=== PATIENT | female | born 1970 | race Caucasian/White ===

== ENCOUNTER 2017-09-09 08:15 | Day surgery (SDC) | payer BC ==
[~2017-09-09 08:15] MED LIST: Lidocaine 1%/Sod Bicarbonate in NS 8.4% 1 ML Syringe IV PRN; Sodium Chloride 0.9% 10 ML Syringe FLUSH PRN
[2017-09-09] MEDS: Lactated Ringers 1,000 ML IV SCH ×2 (08:40→12:39)
[2017-09-09] MEDS ORDERED: Ondansetron 4 MG/2 ML SDV ONE (08:53)
[2017-09-09] MEDS ORDERED: Propofol 200 MG/20 ML SDV ONE (08:53)
[2017-09-09] MEDS ORDERED: Midazolam 1 MG/ML 2 ML SDV ONE (08:53)
[2017-09-09] MEDS ORDERED: Lidocaine 1% 4 ML ONE (08:54)
[2017-09-09] MEDS ORDERED: fentaNYL 250 MCG/5 ML SDV ONE (08:54)
[2017-09-09] MEDS ORDERED: ceFAZolin 1 GM Vial ONE (08:54)
[2017-09-09] MEDS ORDERED: Lidocaine 1% with EPINEPHrine 1:100,000 20 ML MDV ONE (08:57)
[2017-09-09] MEDS ORDERED: Sodium Chloride 0.9% 50 ML SDV ONE (08:57)
--- NOTE | 2017-09-09 09:07 | PCM.PREANE ---
Preanesthetic Assessment - Anesthesia/Transfusion/Family Hx Anesthesia History: Prior Anesthesia Reaction (nausea) Family History of Anesthesia Reaction: No Transfusion History: No Prior Transfusion(s) - Review of Systems General: No Symptoms Pulmonary: No Symptoms Cardiovascular: No Symptoms Gastrointestinal: No Symptoms Neurological: No Symptoms Other: Reports: None - Physical Assessment NPO Status Date: 09/08/17 NPO Status Time: 00:00 Pulse: 68 O2 Sat by Pulse Oximetry: 97 Respiratory Rate: 16 Blood Pressure: 146/67 Temperature: 36.9 C Height: 1.8 m Weight: 123.377 kg ASA Class: 2 Mental Status: Alert & Oriented x3 Airway Class: Mallampati = 1 Dentition: Reports: Normal Dentition Thyro-Mental Finger Breadths: 3 Mouth Opening Finger Breadths: 3 ROM/Head Extension: Full Lungs: Clear to Auscultation, Normal Respiratory Effort Cardiovascular: Regular Rate, Regular Rhythm, No Murmurs - Lab Values: Laboratory Last Values WBC 12.77 K/mm3 (3.98-10.04) H 09/09/17 08:40 RBC 5.36 M/mm3 (3.98-5.22) H 09/09/17 08:40 Hgb 14.0 gm/L (11.2-15.7) 09/09/17 08:40 Hct 43.0 % (34.1-44.9) 09/09/17 08:40 MCV 80.2 fl (79.4-94.8) 09/09/17 08:40 MCH 26.1 pg (25.6-32.2) 09/09/17 08:40 MCHC 32.6 g/dl (32.2-35.5) 09/09/17 08:40 RDW Std Deviation 41.3 fL (36.4-46.3) 09/09/17 08:40 Plt Count 314 K/mm3 (182-369) 09/09/17 08:40 MPV 10.3 fl (9.4-12.3) 09/09/17 08:40 Neut % (Auto) 62.2 % (34.0-71.1) 09/09/17 08:40 Lymph % (Auto) 29.6 % (19.3-51.7) 09/09/17 08:40 Mcculloch % (Auto) 6.7 % (4.7-12.5) 09/09/17 08:40 Eos % (Auto) 1.0 (0.7-5.8) 09/09/17 08:40 Baso % (Auto) 0.3 % (0.1-1.2) 09/09/17 08:40 Neut # (Auto) 7.94 K/mm3 (1.56-6.13) H 09/09/17 08:40 Lymph # (Auto) 3.78 K/mm3 (1.18-3.74) H 09/09/17 08:40 Mcculloch # (Auto) 0.85 K/mm3 (0.24-0.36) H 09/09/17 08:40 Eos # (Auto) 0.13 K/mm3 (0.04-0.36) 09/09/17 08:40 Baso # (Auto) 0.04 K/mm3 (0.01-0.08) 09/09/17 08:40 Urine HCG, Qual Negative (NEGATIVE) 09/09/17 08:23 - Allergies Allergies/Adverse Reactions: Allergies Allergy/AdvReac Type Severity Reaction Status Date / Time grass pollen Allergy Cannot Verified 09/08/17 10:20 Remember mold Allergy Cannot Verified 09/08/17 10:20 Remember dust Allergy Cannot Uncoded 09/08/17 10:20 Remember trees Allergy Cannot Uncoded 09/08/17 10:20 Remember - Anesthesia Plan Pre-Op Medication Ordered: None - Acknowledgements Anesthesia Type Planned: General Anesthesia Pt an Appropriate Candidate for the Planned Anesthesia: Yes Alternatives and Risks of Anesthesia Discussed w Pt/Guardian: Yes Pt/Guardian Understands and Agrees with Anesthesia Plan: Yes PreAnesthesia Questionnaire HEENT History: Reports: Allergic Rhinitis, Impaired Vision, Otitis Media, Sinusitis, Other (See Below) Other HEENT History: wears glasses Cardiovascular History: Reports: None Respiratory History: Reports: Asthma, Other (See Below) Other Respiratory History: upper respiratory infection, cough Gastrointestinal History: Reports: Irritable Bowel Syndrome Genitourinary History: Reports: None 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: Reports: , Other (See Below) Other OB/BYN History: menorrhagia, irregular menses, dysmenorrhea, endometrial polyp Musculoskeletal History: Reports: Other (See Below) Other Musculoskeletal History: body aches Neurological History: Reports: Seizure, Other (See Below) Other Neuro History: head injury Psychiatric History: Reports: Anxiety, Depression, Other (See Below) Other Psychiatric History: fatigue, mood swings Endocrine/Metabolic History: Reports: Obesity/BMI 30+ Hematologic History: Reports: Other (See Below) Other Hematologic History: elevated WBC Immunologic History: Reports: None Oncologic (Cancer) History: Reports: None Dermatologic History: Reports: Other (See Below) Other Dermatologic History: soft tissue mass - Past Surgical History Head Surgeries/Procedures: Reports: Other (See Below) HEENT Surgical History: Reports: Naso-Sinus Surgery Cardiovascular Surgical History: Reports: None Respiratory Surgical History: Reports: None GI Surgical History: Reports: Cholecystectomy Female Surgical History: Reports: None Male Surgical History: Reports: None Endocrine Surgical History: Reports: None Neurological Surgical History: Reports: Other (See Below) Other Neurological Surgeries/Procedures: brain surgery Musculoskeletal Surgical History: Reports: Other (See Below) Other Musculoskeletal Surgeries/Procedures:: ORIF of tibial plateau with hardware removal Oncologic Surgical History: Reports: None - SUBSTANCE USE Smoking Status *Q: Never Smoker Tobacco Use Within Last Twelve Months: No Second Hand Smoke Exposure: No Days Per Week of Alcohol Use: 0 Number of Drinks Per Day: 0 Total Drinks Per Week: 0 Recreational Drug Use History: No - HOME MEDS Home Medications: Home Meds Cetirizine [ZyrTEC] 10 mg PO DAILY PRN 09/08/17 [History] FLUoxetine [PROzac] 20 mg PO DAILY 09/08/17 [History] Fluticasone Propionate [Flonase] 1 spray NASBOTH DAILY PRN 09/08/17 [History] Guaifenesin/Pseudoephedrne HCl [Mucinex D ER 1,200-120 mg Tab] 1 tab PO BID PRN 09/08/17 [History] diphenhydrAMINE HCl [Allergy Medicine] 1 tab PO DAILY 09/08/17 [History] - CURRENT (IN HOUSE) MEDS Current Meds: Current Medications Lactated Ringer's (Ringers, Lactated) 1,000 mls @ 125 mls/hr IV ASDIRECTED JUDY Stop: 09/09/17 18:00 Last Admin: 09/09/17 08:40 Dose: 125 mls/hr Lidocaine/Sodium Bicarbonate (Buffered Lidocaine 1% In Ns 8.4%) 0.25 ml IV ONETIME PRN PRN Reason: Prior to IV Start Stop: 09/09/17 18:00 Last Admin: 09/09/17 08:39 Dose: 0.25 ml Sodium Chloride (Saline Flush) 10 ml FLUSH ASDIRECTED PRN PRN Reason: Keep Vein Open Stop: 09/09/17 18:00 Discontinued Medications Cefazolin Sodium (Ancef) Confirm Administered Dose 2 gm .ROUTE .STK-MED ONE Stop: 09/09/17 08:55 Fentanyl (Sublimaze) Confirm Administered Dose 250 mcg .ROUTE .STK-MED ONE Stop: 09/09/17 08:55 Lidocaine HCl (Xylocaine-Mpf 1%) Confirm Administered Dose 4 mls @ as directed .ROUTE .STK-MED ONE Stop: 09/09/17 08:55 Midazolam HCl (Versed 1 Mg/Ml) Confirm Administered Dose 2 mg .ROUTE .STK-MED ONE Stop: 09/09/17 08:54 Ondansetron HCl (Zofran) Confirm Administered Dose 4 mg .ROUTE .STK-MED ONE Stop: 09/09/17 08:54 Propofol (Diprivan 20 Ml) Confirm Administered Dose 200 mg .ROUTE .STK-MED ONE Stop: 09/09/17 08:54
[2017-09-09] MEDS ORDERED: Rocuronium 50 MG/5 ML Vial ONE (09:47)
[2017-09-09] MEDS ORDERED: Dexamethasone 4 MG/ML SDV ONE (10:00)
[2017-09-09] MEDS ORDERED: diphenhydrAMINE 50 MG/ML SDV ONE (10:00)
[2017-09-09] MEDS ORDERED: Lactated Ringers 1,000 ML ONE (10:12)
[2017-09-09] MEDS ORDERED: Ketorolac 30 MG/ML SDV ONE (10:20)
[2017-09-09] MEDS ORDERED: fentaNYL 100 MCG/2 ML SDV IVPUSH PRN (11:06)
[2017-09-09] MEDS ORDERED: HYDROmorphone 0.5 MG/0.5 ML Syringe IVPUSH PRN (11:06)
--- NOTE | 2017-09-09 11:08 | PCM.POSTAN ---
POST ANESTHESIA ASSESSMENT - MENTAL STATUS Mental Status: Alert, Oriented - VITAL SIGNS Pulse Rate: 114 SaO2: 96 Resp Rate: 16 Blood Pressure: 161/72 Temperature: 36.6 C - RESPIRATORY Respiratory Status: Respiratory Rate WNL, Airway Patent, O2 Saturation Stable, Supplemental Oxygen - CARDIOVASCULAR CV Status: Pulse Rate WNL, Blood Pressure Stable, Elevated Pulse Rate - GASTROINTESTINAL GI Status: No Symptoms - PAIN Pain Score: 0 - POST OP HYDRATION Hydration Status: Adequate & Stable - OBSERVATIONS Free Text/Narrative:: no anesthesia complications noted
--- NOTE | 2017-09-09 11:19 | PCM.OPNOTE ---
- General Post-Op/Procedure Note Date of Surgery/Procedure: 09/09/17 Operative Procedure(s): Hysteroscopy, dilatation and curettage, polypectomy, endometrial ablation with Novasure Findings: Normal appearing endometrium except for anterior endometrial polyp versus fibroid, normal appearing cervix Pre Op Diagnosis: abnormal uterine bleeding, menorrhagia, endometrial polyp Post-Op Diagnosis: Same Anesthesia Technique: General ET Tube Primary Surgeon: Robbin Magaña Secondary Surgeon: Fidel Houser Anesthesia Provider: Mando Clay Reason Tow Operator Was Necessary: patient safety with obese patient Role of Tow Operator: Assist with retraction of redundant tissue durine D&C and endometrial ablation Pathology: Endometrial curettings, anterior endometrial polyp Fluid Replacement, Intraop: 1,500 Output, Urine Amount: 0 EBL in mLs: 5 Complications: None Condition: Good Free Text/Narrative:: Hysteroscopy fluid: In: 1300 mL Out: 1200 mL Procedure in detail: The patient was seen in the preoperative holding area and reviewed the risks, benefits and alternatives of the procedure including bleeding, infection, failure and damage to surrounding organs. Consents were reviewed prior to the operation. She was taken back to the OR where she was given general anesthesia with an endotracheal tube that was placed without difficulty. She was placed in the dorsal lithotomy position using yellowfin stirrups and prepped and draped in the normal sterile fashion. A weighted speculum was placed in the vagina and a single toothed tenaculum was used to grasp the anterior lip of the cervix. The uterus was anteverted and the fundus was sounded to 12 cm. Cervical length was noted to be 4.5 cm. The cervix was dilated to 21 Greek Oliva dilator. The hysteroscope was passed and the endometrial cavity visualized and found to be normal in configuration with overall normal endometrium. There is also noted to be an anterior sessile polyp. Uterine polyp forceps were used to attempt to remove the polyp with small portions removed. [A sharp curette was used to curettage the endometrial lining. The endometrial lining was sent for pathology. Uterine polyp forceps were again used to remove a small portion of the polyp that remained after the sharp curettage. The hysteroscope was reinserted and noted to have small portion of the polyp that remained. Additional attempt was made with uterine polyp forceps but unable to remove additional polypoid tissue and proceeded with endometrial ablation. The NovaSure device was then inserted and the width of the uterine cavity was measured to be 3.0 cm. Cavity assessment was satisfactory and power was applied for 77 seconds. The NovaSure instrument was then removed. The hysteroscope was then reinserted and global endometrial ablation was noted. All instruments were then removed from the vagina and good hemostasis was noted at tenaculum sites. The patient tolerated the procedure well. The patient was awoken and taken to the PACU. She will be discharged home once she was ambulating, voiding, tolerating food and her pain was under control. She will follow up in the clinic in 2 weeks or earlier as needed for any problems that may arise. Review of images from hysteroscopy IMG 001: View of anterior fundal endometrial polyp IMG 002: Additional view of anterior fundal endometrial polyp IMG 003: Global endometrial ablation effect of the uterine cavity
--- NOTE | 2017-09-09 13:44 | PCM48HPAN ---
Post Anesthesia Note - EVALUATION WITHIN 48HRS OF ANESTHETIC Vital Signs in Normal Range: Yes Patient Participated in Evaluation: Yes Respiratory Function Stable: Yes Airway Patent: Yes Cardiovascular Function Stable: Yes Hydration Status Stable: Yes Pain Control Satisfactory: Yes Nausea and Vomiting Control Satisfactory: Yes Mental Status Recovered: Yes - COMMENTS/OBSERVATIONS Free Text/Narrative:: Patient had red petechia on the skin surrounding eyes where the eyes were taped closed for surgery. Explanation was given for petechia with apology. Patient left feeling satisfied with the outcome.
== END 2017-09-09 13:31 | disposition home or self-care (01) ==
LOC: JD.SDS 08:15
PROVIDERS: ATTEND Obstetrics & Gynecology
DX: D25.9 Leiomyoma of uterus, unspecified (principal); F41.8 Other specified anxiety disorders; R53.83 Other fatigue; R51 Headache; J01.90 Acute sinusitis, unspecified; H66.42 Suppurative otitis media, unspecified, left ear; J06.9 Acute upper respiratory infection, unspecified; B97.89 Other viral agents as the cause of diseases classified elsewhere; J45.909 Unspecified asthma, uncomplicated; E66.9 Obesity, unspecified; Z91.048 Other nonmedicinal substance allergy status; Z79.899 Other long term (current) drug therapy; Z68.39 Body mass index [BMI] 39.0-39.9, adult; Z90.49 Acquired absence of other specified parts of digestive tract
CPT/HCPCS: 36415; 58563; 81025; 85025; J1100; J1200; J1885; J2250; J2405; J3010; J7120; 00952; J0690; J2704

== ENCOUNTER 2022-04-18 09:23 | Emergency (ER) | payer OTHER | END 2022-04-18 10:45 | disposition home or self-care (01) | LOC: JD.ED 09:23 | DX: S82.832A Other fracture of upper and lower end of left fibula, initial encounter for closed fracture (principal); I10 Essential (primary) hypertension; E66.9 Obesity, unspecified; Z68.30 Body mass index [BMI] 30.0-30.9, adult; Z91.048 Other nonmedicinal substance allergy status; Z79.899 Other long term (current) drug therapy; X50.1XXA Overexertion from prolonged static or awkward postures, initial encounter; W22.09XA Striking against other stationary object, initial encounter | CPT/HCPCS: 73610-26-LT; 73610-LT; 99283 ==

== ENCOUNTER 2025-04-03 20:02 | Emergency (ER) | payer BC | END 2025-04-03 22:15 | disposition home or self-care (01) | LOC: JD.ED 20:02 | DX: N36.2 Urethral caruncle (principal); I10 Essential (primary) hypertension; E66.9 Obesity, unspecified; Z79.899 Other long term (current) drug therapy; Z91.048 Other nonmedicinal substance allergy status; Z91.018 Allergy to other foods; Z68.32 Body mass index [BMI] 32.0-32.9, adult | CPT/HCPCS: 99283 ==